=== PATIENT | female | born 1990 | race Two or more races ===

== ENCOUNTER 2018-08-28 05:04 | Emergency (ER) | payer SELFPAY ==
[2018-08-28] MEDS ORDERED: Ondansetron PF 4 MG/2 ML Vial ONE (07:12)
--- NOTE | 2018-08-28 07:23 | RAD ---
EXAM: 3 views of the right ankle HISTORY: Ankle pain after injury one month ago COMPARISON: None FINDINGS: 3 views of the right ankle shows no evidence of acute fracture or dislocation. Moderate lat eral soft tissue swelling is seen. No degenerative changes are present. IMPRESSION: No evidence of acute osseous abnormality.
== END 2018-08-28 07:23 | disposition home or self-care (01) ==
LOC: ERS 05:04
DX: M77.9 Enthesopathy, unspecified (principal); J45.909 Unspecified asthma, uncomplicated; F17.210 Nicotine dependence, cigarettes, uncomplicated; Z85.43 Personal history of malignant neoplasm of ovary
CPT/HCPCS: J2405